=== PATIENT | female | born 1975 | race Caucasian/White ===

== ENCOUNTER 2020-01-11 09:22 | Outpatient (CLI) | payer BC ==
--- NOTE | 2020-01-11 10:36 | RAD ---
LUMBAR SPINE 4 VIEWS: Date: 01/11/2020 HISTORY: Ankylosing spondylitis and arthritis. FINDINGS: In the AP projection, there is slight curvature of the lumbar spine to the right with apex at L3 mirna ured at approximately 6 degrees. On the lateral view, the lumbar vertebra maintain normal height and alignment. The disc spaces are p reserved. Minimal degenerative spurring. No evidence of syndesmophyte formation. No evidence of spond ylolisthesis or spondylolysis. Mild to moderate facet hypertrophy in the lower lumbar spine. IMPRESSION: Slight curvature of the lumbar spine to the right in the AP projection. Very mild degenerative change . No evidence of ankylosing spondylitis. POS: AH
== END 2020-01-11 09:23 | disposition home or self-care (01) ==
LOC: BICRAD 09:22
PROVIDERS: ATTEND Internal Medicine Rheumatology
DX: M45.0 Ankylosing spondylitis of multiple sites in spine (principal); M47.816 Spondylosis without myelopathy or radiculopathy, lumbar region; M43.9 Deforming dorsopathy, unspecified
CPT/HCPCS: 72110